=== PATIENT | female | born 2000 | race Caucasian/White ===

== ENCOUNTER 2020-09-01 21:38 | Emergency (ER) | payer OTHER ==
[~2020-09-01] VITALS: Ht 160 cm; Wt 52.2 kg
[2020-09-01] MEDS ORDERED: BIRTH CONTROL (21:57)
[2020-09-01 23:55] LABS: ABSOLUTE BASOPHILS 0.1 thou/uL (0.0-0.2); ABSOLUTE EOSINOPHILS 0.3 thou/uL (0.0-0.7); ABSOLUTE LYMPHOCYTES 1.9 thou/uL (0.8-5.3); ABSOLUTE MONOCYTES 0.5 thou/uL (0.0-1.2); ABSOLUTE NEUTROPHILS 6.5 thou/uL (1.6-8.1); BASOPHILS 1.6 %; EOSINOPHILS 2.8 %; HEMATOCRIT 38.1 % (37.0-47.0); HEMOGLOBIN 12.5 gm/dL (12.0-15.0); LYMPHOCYTES 20.5 %; MCH 25.5 pg (26.0-34.0); MCHC 32.8 g/dL (28.0-37.0); MONOCYTES 5.7 %; MPV 8.9 fl. (7.2-11.1); NUCLEATED RBCS 0 /100WBC; PLATELET COUNT* 333 thou/uL (150-400); POLYS 69.4 %; RBC 4.89 mil/uL (4.20-5.00); RDW-CV 16.5 % (10.5-14.5); WBC 9.4 thou/uL (4.0-11.0)
[2020-09-02] LABS: CALCIUM 8.9 mg/dL (8.5-10.1); CREATININE 0.9 mg/dL (0.6-1.3); POTASSIUM 3.3 mmol/L (3.5-5.1)
[2020-09-02 00:05] LABS: MAGNESIUM 1.8 mg/dL (1.8-2.4); TOTAL BILIRUBIN 0.2 mg/dL (<0.1-1.0); TOTAL PROTEIN 7.7 g/dL (6.4-8.2)
[2020-09-02 00:56] LABS: AMP/METHAMP Negative (Negative); BARBITURATES Negative (Negative); BENZODIAZEPINES Negative (Negative); COCAINE Negative (Negative); METHADONE Negative (Negative); OPIATES Negative (Negative); PCP Negative (Negative); THC POSITIVE (Negative)
[2020-09-02 01:18] LABS: URINE BILIRUBIN NEGATIVE (Negative); URINE BLOOD 3+ (Negative); URINE CLARITY CLEAR; URINE COLOR YELLOW; URINE GLUCOSE-RANDOM NEGATIVE (Negative); URINE KETONES NEGATIVE (Negative); URINE LEUKOCYTES-REFLEX NEGATIVE (Negative); URINE NITRITE-REFLEX NEGATIVE (Negative); URINE PROTEIN NEGATIVE (Negative); URINE UROBILINOGEN 0.2 E.U./dl (0.2-1.0)
[2020-09-02 01:26] LABS: CASTS None Seen /LPF (None Seen); SQUAMOUS 4-10 Moderate /LPF (0-3)
[2020-09-02 01:27] LABS: BACTERIA-REFLEX 1-9 Few /HPF (None Seen); CRYSTALS None Seen /LPF (None Seen); URINE RBC 0-2 Rare /HPF (0-2); URINE WBC-REFLEX 0-5 Rare /HPF (0-5)
[2020-09-02 02:16] VITALS: BP 105/56
--- NOTE | 2020-09-03 10:29 | EKG ---
[place] [address] ELECTROCARDIOGRAM REPORT Name: CARLITOS HANNAH Room: [facility]#: [id number] Admission: 09/01/20 Attend Phys: Discharge: 09/02/20 Date of : [birth year] Date of Service: 09/01/202202 Report #: [id number] THIS REPORT FOR: //name// [facility] ED Test Date: 2020-09-01 Test Time: 22:03:37 Pat Name: CARLITOS HANNAH Department: Room: Gender: F Greenhouse Manager: : 2000 Requested By: Yolie Price Order Number: [id number] MD: Manuel Shirley Measurements Intervals [place] Rate: 64 P: -60 MN: 146 QRS: 80 QRSD: 69 T: 56 QT: 404 QTc: 417 Interpretive Statements Ectopic atrial rhythm LVH by voltage early repolarization No previous ECG available for comparison Electronically Signed On 09-03-2020 10:29:01 CDT by Manuel Shirley [email or web address] <ELECTRONICALLY SIGNED> By: Manuel Shirley MD, LOCATED WITHIN [facility] 09/03/20 1029 02 02 Manuel Shirley MD, [facility]ATED [facility] /EPI
== END 2020-09-02 02:16 | disposition home or self-care (01) ==
LOC: M.ERS 21:38
PROVIDERS: Emergency Medicine; Nurse Practitioner Family
DX: R55 Syncope and collapse (principal); J45.909 Unspecified asthma, uncomplicated; F17.210 Nicotine dependence, cigarettes, uncomplicated; Z86.2 Personal history of diseases of the blood and blood-forming organs and certain disorders involving the immune mechanism; Z79.899 Other long term (current) drug therapy

== ENCOUNTER → 2020-11-06 | Outpatient (CLI) | payer OTHER ==
[~2020-11-06] MED LIST: BIRTH CONTROL
--- NOTE | ~2020-11-06 | EEG ---
[address] [address] EEG STUDY REPORT Name: BRIELLECARLITOS F Room: [facility]#: [id number] Admission: 11/06/20 Attend Phys: J CARLOS ARRIAGA Discharge: Date of : [birth year] Report #: [id number] THIS REPORT FOR: cc: J CARLOS PINEDA NP, KATHERINE J. NP ~ Salazar Butler MD DATE OF SERVICE: 11/06/2020 This patient is being evaluated for an episode of syncope. EEG was done by placing the electrode by standard 10-20 system of electrode placement. Both referential and sequential montages were used for recording. Background activity in this patient's EEG is about 11 Hz and 40 microvolt. It is a symmetrical activity. The patient went to sleep that is associated with bilateral slowing and vertex sharp waves. Photic stimulation is unremarkable. Throughout the record, no active epileptiform activity was noticed. IMPRESSION: This patient's EEG is unremarkable. Thank you very much for this referral. By: 12 [id number] Butler MD /nt
== END ==
LOC: M.CRD 12:31
PROVIDERS: ATTEND Nurse Practitioner Family
DX: R55 Syncope and collapse (principal)

== ENCOUNTER 2020-11-20 22:27 | Emergency (ER) | payer OTHER ==
[~2020-11-20] VITALS: Ht 160 cm; Wt 54.4 kg
[2020-11-20 22:54] LABS: URINE BILIRUBIN NEGATIVE (Negative); URINE BLOOD 2+ (Negative); URINE CLARITY CLEAR; URINE COLOR YELLOW; URINE GLUCOSE-RANDOM NEGATIVE (Negative); URINE KETONES NEGATIVE (Negative); URINE NITRITE-REFLEX NEGATIVE (Negative); URINE PROTEIN TRACE (Negative); URINE UROBILINOGEN 0.2 E.U./dl (0.2-1.0)
[2020-11-20 22:57] LABS: URINE LEUKOCYTES-REFLEX 2+ (Negative)
[2020-11-20 23:11] LABS: CASTS None Seen /LPF (None Seen); SQUAMOUS >10 Many /LPF (0-3)
[2020-11-20 23:12] LABS: URINE RBC 3-10 Few /HPF (0-2); URINE WBC-REFLEX >25 Many /HPF (0-5)
[2020-11-20 23:13] LABS: CRYSTALS None Seen /LPF (None Seen)
[2020-11-20] MEDS ORDERED: HYDROCODON-ACE1 EAC7 PO (23:24)
[2020-11-20] MEDS ORDERED: CIPRO250 M2 PO (23:24)
[2020-11-20] MEDS ORDERED: CIPROFLOXACIN500 M1 PO (23:24)
[2020-11-20 23:33] VITALS: BP 131/56
== END 2020-11-20 23:34 | disposition home or self-care (01) ==
LOC: M.ERS 22:27
PROVIDERS: Personal Emergency Response Attendant
DX: N39.0 Urinary tract infection, site not specified (principal); J45.909 Unspecified asthma, uncomplicated; Z86.2 Personal history of diseases of the blood and blood-forming organs and certain disorders involving the immune mechanism